=== PATIENT | female | born 1960 | race Caucasian/White ===

== ENCOUNTER → 2017-01-17 | Outpatient (CLI) | payer BC ==
--- NOTE | 2017-01-17 15:09 | DIAGNOSTIC IMAGING REPORT ---
KUB HISTORY: N20.0 Nephrolithiasis COMPARISON: KUB 05/18/2016. FINDINGS: The bowel gas pattern is unremarkable. There are no dilated loops of small bowel to suggest an obstruction. No renal calculi. No ureteral calculi. Calcifications in the deep pelvis likely represent phleboliths. These remain unchanged. Moderate right and mild left hip osteoarthritis. No pneumoperitoneum or pneumatosis. IMPRESSION: No renal or ureteral calculi identified. Electronically signed by: Micah Jim M.D. 01/17/2017 3:07 PM Dictated Date/Time: 01/17/2017 3:06 PM
== END | disposition home or self-care (01) ==
LOC: C.RADBC 14:14
PROVIDERS: ATTEND Nurse Practitioner Family
DX: N20.0 Calculus of kidney (principal)

== ENCOUNTER → 2017-07-04 | Outpatient (CLI) | payer BC ==
--- NOTE | 2017-07-04 13:21 | DIAGNOSTIC IMAGING REPORT ---
KUB HISTORY: NEPHROLITHIASIS COMPARISON: KUB 01/17/2017. Abdomen and pelvis CT 05/06/2016. FINDINGS: The bowel gas pattern is unremarkable. There are no dilated loops of small bowel to suggest an obstruction. No renal calculi. No ureteral calculi. Calcifications in the deep pelvis likely represent phleboliths. These remain unchanged. Of note, the right renal shadow is mostly obscured by overlying bowel gas. No pneumoperitoneum or pneumatosis. IMPRESSION: No renal or ureteral stones by conventional radiographic technique. Electronically signed by: Micah Jim M.D. 07/04/2017 1:19 PM Dictated Date/Time: 07/04/2017 1:18 PM
== END | disposition home or self-care (01) ==
LOC: C.RAD 12:37
PROVIDERS: ATTEND Urology
DX: N20.0 Calculus of kidney (principal)

== ENCOUNTER → 2017-08-08 | Outpatient (CLI) | payer BC ==
--- NOTE | 2017-08-08 11:01 | DIAGNOSTIC IMAGING REPORT ---
CHEST 2 VIEWS ROUTINE CLINICAL HISTORY: R05 COUGH dyspnea COMPARISON STUDY: No previous studies for comparison. FINDINGS: No evidence for cardiac enlargement. Diaphragms smooth. Lungs are clear. Several scattered calcified granulomas. IMPRESSION: No acute process. The above report was generated using voice recognition software. It may contain grammatical, syntax or spelling errors. Electronically signed by: Kodi Chavez M.D. 08/08/2017 11:00 AM Dictated Date/Time: 08/08/2017 10:59 AM
== END | disposition home or self-care (01) ==
LOC: C.RAD 10:31
PROVIDERS: ATTEND Family Medicine
DX: R05 Cough (principal)

== ENCOUNTER → 2017-10-30 | Outpatient (CLI) | payer BC | END | disposition home or self-care (01) | LOC: C.LABSPEC 14:05 | PROVIDERS: ATTEND Physician Assistant | DX: N76.0 Acute vaginitis (principal) ==

== ENCOUNTER 2017-11-16 13:23 | Emergency (ER) | payer BC, OTHER ==
[~2017-11-16] VITALS: Ht 170.2 cm; Wt 82.6 kg
[2017-11-16 13:28] VITALS: TEMP 36.4; Ht 170.2 cm; Wt 82.6 kg
[2017-11-16] MEDS ORDERED: DEXAMETHASONE INJ 10 MG in SYRINGE 0 ML IV STA (13:56)
[2017-11-16] MEDS ORDERED: GUAI1TAB69 PO (14:24)
[2017-11-16] MEDS ORDERED: PSEU30TA3 PO (14:24)
[2017-11-16 14:39] LABS: BASO % 0.2 %; BASO ABS # 0.02 K/uL (0-0.2); EOS % 2.3 %; EOS ABS # 0.21 K/uL (0-0.5); HEMATOCRIT 41.2 % (37-47); HEMOGLOBIN 13.9 g/dL (12.0-16.0); IG# 0.13 K/uL (0.00-0.02); LYMPH % 31.8 %; LYMPH ABS # 2.92 K/uL (1.2-3.4); MEAN CELL VOLUME 96.3 fL (80-100); MEAN CORPUSCULAR HEMOGLOBIN 32.5 pg (25-34); MEAN CORPUSCULAR HGB CONC 33.7 g/dl (32-36); MEAN PLATELET VOLUME 9.2 fL (7.4-10.4); MONO % 8.1 %; MONO ABS # 0.74 K/uL (0.11-0.59); NEUT % 56.2 %; NEUT ABS # 5.16 K/uL (1.4-6.5); PLATELET COUNT 228 K/uL (130-400); RED CELL DISTRIBUTION WIDTH CV 12.7 % (11.5-14.5); WHITE BLOOD COUNT 9.18 K/uL (4.8-10.8)
[2017-11-16 15:10] LABS: BLOOD UREA NITROGEN 19 mg/dl (7-18); CALCIUM 9.2 mg/dl (8.5-10.1); CARBON DIOXIDE 26 mmol/L (21-32); CREATININE 0.74 mg/dl (0.60-1.20); GLUCOSE 115 mg/dl (70-99); POTASSIUM 3.8 mmol/L (3.5-5.1); SODIUM 136 mmol/L (136-145)
--- NOTE | 2017-11-16 15:25 | DIAGNOSTIC IMAGING REPORT ---
CHEST 2 VIEWS ROUTINE CLINICAL HISTORY: COUGH x 3 MOS cough COMPARISON STUDY: 08/08/2017 FINDINGS: Unchanging calcification granulomas left midlung. Lungs otherwise are clear. Diaphragms smooth. Costophrenic angles are sharp. Moderate degenerative changes thoracic spine. IMPRESSION: Chronic change. No acute process. The above report was generated using voice recognition software. It may contain grammatical, syntax or spelling errors. Electronically signed by: Kodi Chavez M.D. 11/16/2017 3:24 PM Dictated Date/Time: 11/16/2017 3:23 PM
[2017-11-16] MEDS ORDERED: METH4PAK PO (16:09)
[2017-11-16 16:39] VITALS: BP 129/88; PULSE 83; O2SAT 92
--- NOTE | 2017-11-16 19:40 | EMERGENCY ROOM VISIT NOTE ---
History First contact with patient: 13:31 Chief Complaint: SHORTNESS OF BREATH Stated Complaint: SHORTNESS OF BREATH Nursing Triage Summary: triage note: pt reports increasing shortness of breath since this am. pt reports non productive cough. pt took z-pack and steroids - last doses were on monday. pt reports using inhalers without relief. History of Present Illness The patient is a 57 year old female who presents to the Emergency Room with complaints of an upper respiratory infection that has been intermittent for the past 3 months. The patient reports that she initially developed a sinus infection and cough and August, and was treated with Augmentin. Her chest x- ray at that time was normal. In September, she was found to have a tick bite on her back which was removed, and the patient was treated with a 21 day course of doxycycline. The patient was back into see her family doctor earlier last week , and was provided a prescription for a Z-Aram and prednisone burst. The patient reports that all of the antibiotic treatments helped for short period time, however symptoms have continued to return. She reports a productive cough with a yellowish sputum. She has tried constitution party much every possible OTC medicine for symptoms without relief. She has an appointment with a tele rn next Monday, but presents to emergency department because of her current symptoms. The patient is currently using a Ventolin inhaler, but does not like the way it makes her feel. She also has a cough medicine with codeine which again causes undesirable side effects. When asked if she has tried Tessalon Perles in the past, she reports that they do absolutely nothing for her cough. The patient denies any chest pain. The patient denies any foreign travel since last fall, and denies any known sick contacts. She denies any history of immunocompromise, asthma or other cardiopulmonary history. She currently denies any pain. Review of Systems HEENT: Denies dizziness, visual problems, hearing loss, tinnitus. Denies difficulty swallowing or oral lesions. PULMONARY: See history of present illness. CARDIOVASCULAR: Denies chest pain, palpitations, dyspnea on exertion, orthopnea or peripheral edema. GASTROINTESTINAL: Denies diarrhea, constipation, nausea, vomiting, or abdominal pain. GENITOURINARY: Denies dysuria, frequency, urgency or nocturia. NEUROLOGIC: Denies history of epilepsy, CVA, TIA or chronic headaches. MUSCULOSKELETAL: Denies history of joint tenderness/swelling. SKIN: Denies rashes or lesions. PSYCHIATRIC: Denies history of depression or mental illness. ENDOCRINE: Denies history of diabetes or thyroid disorders. Past Medical/Surgical History Medical Problems: (1) SVT (supraventricular tachycardia) Surgical Problems: (1) S/P appendectomy Family History Cancer Diabetes mellitus FH: heart disease Kidney disease Kidney stones Social History Smoking Status: Never Smoker Alcohol Use: none Marital Status: Housing Status: lives alone Occupation Status: employed Current/Historical Medications Scheduled Guaifenesin (Mucinex Maximum Strength), 1 TAB PO Q12 Methylprednisolone (Medrol Dosepak), 0 PO DAILY Pseudoephedrine Hcl (Sudafed Nasal Decongestan), 1 TAB PO Q12 Physical Exam Vital Signs Date Time Temp Pulse Resp B/P (MAP) Pulse Ox O2 Delivery O2 Flow Rate FiO2 11/16/17 16:39 83 18 129/88 92 11/16/17 15:11 81 18 120/80 93 Room Air 11/16/17 13:28 36.4 94 20 138/88 96 Room Air Physical Exam CONSTITUTIONAL: Healthy and well nourished. Alert and oriented X 3 with positive affect. Patient does have a productive cough, but does not appear in any acute respiratory distress. HEENT: Normocephalic, atraumatic. Pupils equal, round and reactive. Ears and nares are clear. No conjunctival injection or subconjunctival hemorrhage. NECK: Full active range of motion without discomfort. No JVD or carotid bruits. RESPIRATORY: Clear to auscultation bilaterally with no wheezing, crackles, rhonchi or stridor. CARDIOVASCULAR: Regular rate and rhythm with no murmurs, rubs or gallops. GASTROINTESTINAL: Bowel sounds present in all quadrants. Soft and nontender to palpation. MUSCULOSKELETAL: Full range of motion of all joints without discomfort. INTEGUMENTARY: No rash or other significant dermatologic conditions noted. HEMATOLOGIC: No ecchymosis or petechiae noted. NEUROLOGIC: No focal neurologic deficits noted. Medical Decision & Procedures ER Provider Diagnostic Interpretation: My interpretation of an ECG shows a normal sinus rhythm of 82 bpm with an RSR prime pattern and anteroseptal leads. No ST elevations noted. There are no prior ECGs available for comparison. My interpretation of a two-view chest x-ray does not show any consolidations, cardiac prominence or pneumothorax. Radiologist report is as follows: CHEST 2 VIEWS ROUTINE CLINICAL HISTORY: COUGH x 3 MOS cough COMPARISON STUDY: 08/08/2017 FINDINGS: Unchanging calcification granulomas left midlung. Lungs otherwise are clear. Diaphragms smooth. Costophrenic angles are sharp. Moderate degenerative changes thoracic spine. IMPRESSION: Chronic change. No acute process. Laboratory Results 11/16/17 14:10 Red Blood Count 4.28, Mean Corpuscular Volume 96.3, Mean Corpuscular Hemoglobin 32.5, Mean Corpuscular Hemoglobin Concent 33.7, Mean Platelet Volume 9.2, Neutrophils (%) (Auto) 56.2, Lymphocytes (%) (Auto) 31.8, Monocytes (%) (Auto) 8.1, Eosinophils (%) (Auto) 2.3, Basophils (%) (Auto) 0.2, Neutrophils # (Auto) 5.16, Lymphocytes # (Auto) 2.92, Monocytes # (Auto) 0.74, Eosinophils # (Auto) 0.21, Basophils # (Auto) 0.02 11/16/17 14:10 Test 11/16/17 14:10 White Blood Count 9.18 K/uL (4.8-10.8) Red Blood Count 4.28 M/uL (4.2-5.4) Hemoglobin 13.9 g/dL (12.0-16.0) Hematocrit 41.2 % (37-47) Mean Corpuscular Volume 96.3 fL (80-100) Mean Corpuscular Hemoglobin 32.5 pg (25-34) Mean Corpuscular Hemoglobin Concent 33.7 g/dl (32-36) Platelet Count 228 K/uL (130-400) Mean Platelet Volume 9.2 fL (7.4-10.4) Neutrophils (%) (Auto) 56.2 % Lymphocytes (%) (Auto) 31.8 % Monocytes (%) (Auto) 8.1 % Eosinophils (%) (Auto) 2.3 % Basophils (%) (Auto) 0.2 % Neutrophils # (Auto) 5.16 K/uL (1.4-6.5) Lymphocytes # (Auto) 2.92 K/uL (1.2-3.4) Monocytes # (Auto) 0.74 K/uL (0.11-0.59) Eosinophils # (Auto) 0.21 K/uL (0-0.5) Basophils # (Auto) 0.02 K/uL (0-0.2) RDW Standard Deviation 44.0 fL (36.4-46.3) RDW Coefficient of Variation 12.7 % (11.5-14.5) Immature Granulocyte % (Auto) 1.4 % Immature Granulocyte # (Auto) 0.13 K/uL (0.00-0.02) Erythrocyte Sedimentation Rate 2 mm/hr (0-21) Anion Gap 6.0 mmol/L (3-11) Est Creatinine Clear Calc Drug Dose 91.6 ml/min Estimated GFR () 103.5 Estimated GFR (Non- 89.3 BUN/Creatinine Ratio 25.3 (10-20) Calcium Level 9.2 mg/dl (8.5-10.1) C-Reactive Protein < 0.29 mg/dl (0-0.29) Pro-B-Type Natriuretic Peptide 83 pg/ml (0-900) The above labs were reviewed and were grossly normal. Medications Administered Medications (Trade) Dose Ordered Sig/Doroteo Route Start Time Stop Time Status Last Admin Dose Admin Dexamethasone Sodium Phosphate 10 mg/Syringe 2.5 ml @ 1 mls/min ONE STAT IV 11/16/17 13:56 11/16/17 13:58 DC 11/16/17 15:05 1 MLS/MIN ED Course Patient history and physical exam were performed. Nurse's notes were reviewed. Vital signs were reviewed and normal with an O2 saturation of 96% on room air. The patient is not tachycardic, height/hypertensive or febrile. The patient does have a cough on exam. I did suggest several different etiologies for her cough, most likely being a current upper respiratory infection. I do feel that a pulmonology consult is very important. I also discussed my concern for possible other cardiopulmonary etiologies, including pulmonary embolus. The patient immediately reported that she cannot tolerate IV contrast, reporting that her throat almost swelled shut the last time she had a CT with contrast. IV access was established, and labs were drawn. ECG was performed and was normal. A two-view chest x-ray was also normal, showing no evidence for consolidations, pneumothorax or cardiac prominence. Review of labs also does not show any abnormal findings. The patient was administered IV Decadron, and reports significant relief of her symptoms. The case was further discussed with Dr. Lockhart, ED attending physician who agrees with workup and plan of care. It was suggested that the patient be provided a prescription for a prednisone taper, and continue follow-up with pulmonology. The patient was in agreement with this plan. She was provided and AeroChamber for use with her Ventolin. She was instructed to return to the emergency department over the weekend for any progressively worsening symptoms. The patient was happy with plan of care, and voiced understanding of all discharge instructions. Medical Decision She appears to have an acute bronchitis that has not responded to 3 different antibiotics. An atypical infection is suggested. The patient will likely require bronchoscopy. He was plugging is also possible. X-rays today are not suggestive of pneumonia. I feel that the patient is at low risk for pulmonary embolus as her symptoms are more consistent with infectious etiology. Medication Reconcilliation Current Medication List: was personally reviewed by me Blood Pressure Screening Patient's blood pressure: Normal blood pressure Impression Primary Impression: Acute bronchitis Departure Information Prescriptions Methylprednisolone (MEDROL DOSEPAK) 4 Mg Aram 0 PO DAILY, #1 PKT Prov: Gaurav Starkey PA 11/16/17 Referrals Eliceo Alexander D.O. (PCP) Patient Instructions My [facility] Problem Qualifiers Primary Impression: Acute bronchitis Bronchitis organism: unspecified organism Qualified Codes: J20.9 - Acute bronchitis, unspecified
== END 2017-11-16 16:42 | disposition home or self-care (01) ==
LOC: C.EDB 13:25 → C.EDC 16:42
DX: J20.9 Acute bronchitis, unspecified (principal); Z80.9 Family history of malignant neoplasm, unspecified; Z83.3 Family history of diabetes mellitus; Z82.49 Family history of ischemic heart disease and other diseases of the circulatory system; Z84.1 Family history of disorders of kidney and ureter

== ENCOUNTER → 2017-11-21 | Outpatient (CLI) | payer OTHER ==
[~2017-11-21] MED LIST: GUAI1TAB69 PO; METH4PAK PO; PSEU30TA3 PO
--- NOTE | 2017-11-21 12:02 | DIAGNOSTIC IMAGING REPORT ---
SINUSES MIN 3 VIEWS ROUTINE CLINICAL HISTORY: SINUSITIS COMPARISON STUDY: Orbits 09/09/2011 FINDINGS: Small bilateral maxillary sinus fluid levels. The frontal sinuses, ethmoid air cells, sphenoid sinuses, and mastoid air cells are clear. The nasal septum is essentially midline. IMPRESSION: Small bilateral maxillary sinus fluid levels consistent with acute sinusitis. Electronically signed by: Micah Jim M.D. 11/21/2017 12:00 PM Dictated Date/Time: 11/21/2017 11:59 AM
[2017-11-21 12:18] LABS: BASO % 0.3 %; BASO ABS # 0.04 K/uL (0-0.2); EOS % 0.4 %; EOS ABS # 0.05 K/uL (0-0.5); HEMATOCRIT 46.1 % (37-47); HEMOGLOBIN 15.6 g/dL (12.0-16.0); IG# 0.26 K/uL (0.00-0.02); LYMPH % 24.8 %; LYMPH ABS # 3.38 K/uL (1.2-3.4); MEAN CORPUSCULAR HEMOGLOBIN 32.5 pg (25-34); MEAN CORPUSCULAR HGB CONC 33.8 g/dl (32-36); MEAN PLATELET VOLUME 9.1 fL (7.4-10.4); MONO % 8.1 %; MONO ABS # 1.11 K/uL (0.11-0.59); NEUT % 64.5 %; NEUT ABS # 8.81 K/uL (1.4-6.5); PLATELET COUNT 254 K/uL (130-400); RED CELL DISTRIBUTION WIDTH SD 45.5 fL (36.4-46.3); WHITE BLOOD COUNT 13.65 K/uL (4.8-10.8)
[2017-11-21 12:31] LABS: INR 0.9 (0.9-1.1)
[2017-11-21 12:58] LABS: BLOOD UREA NITROGEN 21 mg/dl (7-18); CALCIUM 9.8 mg/dl (8.5-10.1); CARBON DIOXIDE 28 mmol/L (21-32); CREATININE 0.75 mg/dl (0.60-1.20); GLUCOSE 100 mg/dl (70-99); POTASSIUM 3.8 mmol/L (3.5-5.1); SODIUM 135 mmol/L (136-145)
[2017-11-23 10:42] LABS: QUANTIF MITOGEN-NIL >10.00 IU/ML; QUANTIFERON NEGATIVE (NEGATIVE); QUANTIFERON NIL 0.46 IU/ML
== END | disposition home or self-care (01) ==
LOC: C.RAD1850 10:55
PROVIDERS: ATTEND Physician Assistant
DX: R05 Cough (principal); J01.90 Acute sinusitis, unspecified

== ENCOUNTER → 2017-12-01 | Outpatient (CLI) | payer OTHER ==
[~2017-12-01] MED LIST changes: -METH4PAK PO
--- NOTE | 2017-12-01 13:15 | DIAGNOSTIC IMAGING REPORT ---
(CHEST) THORAX WITHOUT CLINICAL HISTORY: R05 productive cough and shortness of breath COMPARISON STUDY: Chest x-ray dated 11/16/2017, CT scan dated 02/23/2007 CT DOSE: 282.70 mGycm TECHNIQUE: CT of the thorax was performed from the thoracic inlet to the lung bases. Images are reviewed in the axial, sagittal, and coronal planes. IV contrast was not administered for this examination. A dose lowering technique was utilized adhering to the principles of ALARA. FINDINGS: Thyroid: Imaged portions of the thyroid gland are normal in appearance. Thoracic aorta: The thoracic aorta is normal in course and caliber, noting standard 3 vessel arch anatomy. Heart: The heart is normal in size and configuration, without pericardial effusion. Lungs and pleural spaces: No pleural effusions are visualized. There is no focal pulmonary consolidation. There are no suspicious pulmonary masses. There is a calcified granuloma within the left upper lobe. Mediastinum: There are small nonpathologically enlarged mediastinal lymph nodes. Amber: There is no evidence of pathologic hilar adenopathy given the limitations of a noncontrast study Axilla: There is no evidence of pathologic axillary lymphadenopathy Upper abdomen: There are few tiny hepatic hypodensities, similar to the prior study and likely representing cysts. There is a stable calcification located lateral to the distal esophagus. There is an 18 mm soft tissue nodule abutting the upper pole the left kidney. This likely represents an exophytic left renal lesion. This slightly exceeds water attenuation. This lesion measured 10 mm in 2007. The slow growth favors a diagnosis of a slightly hyperdense cyst. Skeletal structures: There are no lytic or blastic osseous lesions. IMPRESSION: 1. No evidence of focal pulmonary consolidation 2. No evidence of pathologic adenopathy. Electronically signed by: Baljinder Marion M.D. 12/01/2017 1:13 PM Dictated Date/Time: 12/01/2017 1:07 PM
== END | disposition home or self-care (01) ==
LOC: C.CTS 12:39
PROVIDERS: ATTEND Physician Assistant
DX: R05 Cough (principal)

== ENCOUNTER → 2017-12-06 | Outpatient (CLI) | payer OTHER | END | disposition home or self-care (01) | LOC: C.LABSPEC 15:48 | PROVIDERS: ATTEND Obstetrics & Gynecology | DX: N89.8 Other specified noninflammatory disorders of vagina (principal) ==

== ENCOUNTER → 2017-12-21 | Outpatient (CLI) | payer OTHER ==
--- NOTE | 2017-12-21 15:37 | DIAGNOSTIC IMAGING REPORT ---
CT SCAN OF THE PARANASAL SINUSES CLINICAL HISTORY: Chronic sinusitis. COMPARISON STUDY: CT scan of the neck dated 02/23/2007. TECHNIQUE: High-resolution CT scan of the paranasal sinuses is performed. Images are reviewed in the axial, sagittal, and coronal planes. IV contrast was not administered for this examination. The examination is performed using the fusion protocol. A dose lowering technique was utilized adhering to the principles of ALARA. CT DOSE: 644.78 mGy.cm FINDINGS: Maxillary antra: A 1.4 cm retention cyst is noted on the left. The maxillary sinuses are otherwise clear. Anterior ethmoid sinuses: Clear. Posterior ethmoid sinuses: Clear. Sphenoid sinuses: Clear. Frontal sinuses: Clear. Ostiomeatal complexes: Patent bilaterally. Frontoethmoidal and sphenoethmoidal recesses: Patent bilaterally. Carotid arteries: The carotid arteries are covered noting a septal attachment on the left. Ethmoid roofs: There is asymmetric elevation of the left ethmoid roof as compared to the right. Nasal turbinates: Normal in appearance. Nasal septum: There is rightward deviation of the bony nasal septum with a small spur. Optic nerves: Covered. Orbits: The bony orbits are intact. Orbital contents are normal in appearance. Calvarium: The skeletal structures are osteopenic. The imaged calvarium is normal in appearance. Cervical spondylosis is partially imaged. Arthritic change is noted in the temporomandibular joints. Mastoid air cells: There is a trace left mastoid effusion. The right mastoid air cells are clear. Brain parenchyma: Partially visualized brain parenchyma is within normal limits. IMPRESSION: No significant paranasal sinus disease is identified. See above. Electronically signed by: Rajendra Forrest M.D. 12/21/2017 3:36 PM Dictated Date/Time: 12/21/2017 3:32 PM
== END | disposition home or self-care (01) ==
LOC: C.CTS 15:16
DX: J32.9 Chronic sinusitis, unspecified (principal); Z87.891 Personal history of nicotine dependence

== ENCOUNTER → 2017-12-25 | Outpatient (CLI) | payer OTHER | END | disposition home or self-care (01) | LOC: C.LAB 12:41 | PROVIDERS: ATTEND Obstetrics & Gynecology | DX: R39.9 Unspecified symptoms and signs involving the genitourinary system (principal) ==

== ENCOUNTER → 2018-02-02 | Outpatient (CLI) | payer OTHER ==
--- NOTE | 2018-02-05 12:43 | MAMMOGRAPHY REPORT ---
BILATERAL DIGITAL SCREENING MAMMOGRAM TOMOSYNTHESIS WITH CAD: 02/02/2018 CLINICAL HISTORY: Routine screening. The patient reported to the technologist that she has swollen l ymph nodes under her arms. TECHNIQUE: Breast tomosynthesis in addition to standard 2D mammography was performed. Current study was also evaluated with a Computer Aided Detection (CAD) system. COMPARISON: Comparison is made to exams dated: 10/19/2012 mammogram, 10/03/2011 mammogram - [facility], and 11/12/2008. BREAST COMPOSITION: The tissue of both breasts is heterogeneously dense, which may obscure small mas ses. FINDINGS: No suspicious masses, calcifications, or areas of architectural distortion are noted in ei ther breast. There has been no significant interval change compared to prior exams. The patient reported to the technologist that she has swollen lymph nodes under her arms. The visual ized portions of bilateral axillary regions demonstrate morphologically normal axillary lymph nodes, without suspicious masses or other suspicious mammographic abnormality seen. IMPRESSION: ACR BI-RADS CATEGORY 2: BENIGN 1. There is no mammographic evidence of malignancy. A 1 year screening mammogram is recommended. 2. The patient reported to the technologist that she has swollen lymph nodes under her arms. Morpho logically normal axillary lymph nodes are seen in the visualized portions of bilateral axillae, witho ut a suspicious mammographic abnormality seen. Recommend clinical follow-up; if there is a new or cl inically suspicious palpable finding then additional evaluation with targeted ultrasound should be pe rformed. The patient will receive written notification of the results. Approximately 10% of breast cancers are not detected with mammography. A negative mammographic report should not delay biopsy if a clinically suggestive mass is present. Rachel Ivan M.D. ah/:02/02/2018 16:03:39 [employer] Maintenance Chief: Mirna MICHAELS)(Shahriar), [facility] letter sent: Normal 1/2 BI-RADS Code: ACR BI-RADS Category 2: Benign
== END | disposition home or self-care (01) ==
LOC: C.MAMM 14:50
PROVIDERS: ATTEND Obstetrics & Gynecology
DX: Z12.31 Encounter for screening mammogram for malignant neoplasm of breast (principal)

== ENCOUNTER → 2018-02-09 | Outpatient (CLI) | payer OTHER | END | disposition home or self-care (01) | LOC: C.PAPS 17:08 | PROVIDERS: ATTEND Obstetrics & Gynecology | DX: Z01.419 Encounter for gynecological examination (general) (routine) without abnormal findings (principal) ==

== ENCOUNTER → 2018-02-28 | Outpatient (CLI) | payer OTHER | END | disposition home or self-care (01) | LOC: C.LABSPEC 17:19 | PROVIDERS: ATTEND Obstetrics & Gynecology | DX: N76.2 Acute vulvitis (principal) ==